=== PATIENT | female | born 1950 | race Caucasian/White ===

== ENCOUNTER → 2016-09-15 18:44 | Outpatient (CLI) | payer OTHER ==
[2011-06-16 08:37] VITALS: BMI 36.6
== END | disposition home or self-care (01) ==
LOC: D.MAMMO 13:15
DX: Z12.31 Encounter for screening mammogram for malignant neoplasm of breast (principal)

== ENCOUNTER → 2016-11-20 15:56 | Outpatient (CLI) | payer OTHER ==
[2011-06-16 08:37] VITALS: BMI 36.6
[2016-11-20 16:25] LABS: CALC OSMOLALITY 287 mosm/kg (275-300); CALCIUM 8.9 mg/dL (8.5-10.1); CARBON DIOXIDE 30.6 mmol/L (21.0-32.0); CHLORIDE - SERUM 106 mmol/L (98-107); CREATININE - SERUM 0.8 mg/dL (0.6-1.3); GLUCOSE 139 mg/dL (74-106); POTASSIUM - SERUM 4.2 mmol/L (3.5-5.1); SODIUM 143 mmol/L (136-145); UREA NITROGEN 16 mg/dL (7-18); eGFR NON AFRICAN AMERICAN 76 mL/min (90-120)
== END | disposition home or self-care (01) ==
LOC: D.LABREF 15:56
PROVIDERS: Family Medicine
DX: I10 Essential (primary) hypertension (principal)

== ENCOUNTER → 2017-10-08 17:00 | Outpatient (CLI) | payer OTHER ==
[2011-06-16 08:37] VITALS: BMI 36.6
== END | disposition home or self-care (01) ==
LOC: D.MAMMO 09:45
DX: Z12.31 Encounter for screening mammogram for malignant neoplasm of breast (principal)

== ENCOUNTER → 2017-10-22 21:45 | Outpatient (CLI) | payer OTHER ==
[2011-06-16 08:37] VITALS: BMI 36.6
== END | disposition home or self-care (01) ==
LOC: D.MAMMO 09:30
DX: Z12.31 Encounter for screening mammogram for malignant neoplasm of breast (principal)

== ENCOUNTER → 2017-11-03 07:29 | Outpatient (CLI) | payer OTHER ==
[2011-06-16 08:37] VITALS: BMI 36.6
== END | disposition home or self-care (01) ==
LOC: D.RAD 07:29
DX: K21.9 Gastro-esophageal reflux disease without esophagitis (principal)